=== PATIENT | female | born 1965 | race Caucasian/White ===

== ENCOUNTER 2018-06-13 08:44 | Observation (INO) | payer MEDICAID ==
[~2018-06-13 08:44] MED LIST: DESFLURANE 15 MIN; ROCURONIUM 50 MG INJ; SOD CHLORIDE 0.9% 1,000 ML IV; VANCOMYCIN HCL 2 GM in SOD CHLORIDE 0.9% 500 ML IVPB
[2018-06-13] MEDS ORDERED: OXYCODONE/ACETAMINOPHEN (5/325) TAB PO ×2 (11:00)
[2018-06-13] MEDS ORDERED: ONDANSETRON 4 MG INJ IV ×2 (11:00→15:30)
[2018-06-13] MEDS ORDERED: HYDROmorphONE 1 MG/5 ML IV SYRINGE IV ×3 (11:00)
[2018-06-13] MEDS ORDERED: MEPERIDINE 25 MG INJ IV (11:00)
[2018-06-13] MEDS ORDERED: PROPOFOL 20 ML (11:23)
[2018-06-13] MEDS ORDERED: LIDOCAINE 2% (SDV) 5 ML INJ (11:23)
[2018-06-13] MEDS ORDERED: MIDAZOLAM 1 MG/ML 2 ML INJ (11:23)
[2018-06-13] MEDS ORDERED: FENTAnyl 50 MCG/ML VIAL ×2 (11:23→14:22)
[2018-06-13] MEDS ORDERED: CLINDAMYCIN 900 MG/D5W (PMX) 50 ML IVPB (13:12)
[2018-06-13] MEDS ORDERED: DEXAMETHASONE 4 MG/ML 5 ML INJ (13:25)
[2018-06-13] MEDS ORDERED: METOCLOPRAMIDE 10 MG INJ (13:25)
[2018-06-13] MEDS ORDERED: FAMOTIDINE 20 MG INJ (13:25)
[2018-06-13] MEDS ORDERED: ONDANSETRON 4 MG INJ (13:25)
[2018-06-13] MEDS: ISOSULFAN BLUE 1% 5 ML INJ SC ×2 (13:36)
[2018-06-13] MEDS ORDERED: GLYCOPYRROLATE 0.4 MG INJ (14:40)
[2018-06-13] MEDS ORDERED: NEOSTIGMINE 3 MG/3 ML SYRINGE (14:40)
[2018-06-13] MEDS ORDERED: SUGAMMADEX SODIUM 200 MG/2 ML VIAL IV (15:06)
[2018-06-13] MEDS ORDERED: DIPHENHYDRAMINE 25 MG CAP PO (15:30)
[2018-06-13] MEDS ORDERED: ACETAMINOPHEN 325 MG TAB PO (15:30)
[2018-06-13] MEDS ORDERED: HYDROmorphONE 1 MG/ML SYG SC (15:30)
[2018-06-13] MEDS ORDERED: HYDROCODONE/APAP (5/325) TAB PO (15:30)
[2018-06-13] MEDS: D5W-0.45 NACL + KCL 20 MEQ 1,000 ML IV (16:46)
== END 2018-06-14 09:30 | disposition home or self-care (01) ==
LOC: SDS 08:44 → REC 15:37 → 2NE 16:35
DX: D05.01 Lobular carcinoma in situ of right breast (principal); R00.1 Bradycardia, unspecified; Z88.0 Allergy status to penicillin
CPT/HCPCS: 19301; 71045; 88307; 88341; 88342; 93005; 99217; G0378

== ENCOUNTER 2018-08-09 11:39 | Day surgery (SDC) | payer MEDICAID ==
[2018-08-09] MEDS: SOD CHLORIDE 0.9% 1,000 ML IV (12:42)
[2018-08-09] MEDS: CLINDAMYCIN 600 MG/D5W (PMX) 50 ML IVPB (13:00)
[2018-08-09] MEDS: LIDOCAINE 1%/EPI (1:100,000) (MDV) 20 ML ×2 (13:36→14:00)
[2018-08-09] MEDS: FENTAnyl 50 MCG/ML VIAL (13:45)
[2018-08-09] MEDS: HEPARIN 1000 UNITS/ML 10 ML INJ (13:50)
[2018-08-09] MEDS: POLYMYXIN/BACITRACIN 1L IRRIG IRR (14:00)
[2018-08-09] MEDS: MIDAZOLAM 1 MG/ML 2 ML INJ (14:00)
== END 2018-08-09 17:15 | disposition home or self-care (01) ==
LOC: SDS 11:39
DX: C50.911 Malignant neoplasm of unspecified site of right female breast (principal)
CPT/HCPCS: 36561; 76942